=== PATIENT | female | born 1990 | race Caucasian/White ===

== ENCOUNTER 2023-02-19 13:07 | Outpatient (CLI) | payer OTHER, SELFPAY ==
[2023-02-19 21:19] LABS: Chlamydia DNA Amplified* NOT DETECTED (No Detected); GC DNA Amplified* NOT DETECTED (No Detected)
== END 2023-02-19 13:08 | disposition home or self-care (01) ==
PROVIDERS: Visit Provider Advanced Practice Midwife
DX: Z34.91 Encounter for supervision of normal pregnancy, unspecified, first trimester (principal); Z3A.09 9 weeks gestation of pregnancy
CPT/HCPCS: 76801; 86592; 86703; 86762; 86787; 86803; 86850; 86900; 86901; 87086; 87340; 87491; 87591

== ENCOUNTER 2023-05-06 12:48 | Outpatient (CLI) | payer OTHER, SELFPAY ==
--- NOTE | 2023-05-06 13:00 | CRLHL7_ITS ---
For Patients: As a result of the Century Cures Act, medical imaging exams and procedure reports are released immediately into your electronic medical record. You may view this report before your referring provider. If you have questions, please contact your health care provider. INDICATION: Evaluate anatomy. COMPARISON: 02/19/2023 TECHNIQUE: Real time duran scale imaging of the fetus was performed as well as color Doppler analysis of the umbilical vessels. FINDINGS: Sonographic imaging demonstrates a single living intrauterine gestation. Fetus demonstrates a regular cardiac rate of 148 beats per minute. Fetus has a variable position. The placenta lies anteriorly without evidence of placenta previa. The edges of the placenta is located 2.7 cm from the internal cervical os. Amniotic fluid volume appears normal. Single deepest vertical pocket: 5.2 cm. The cervix is closed and measures 4.5 cm in length. The composite ultrasound gestational age is calculated at 20 weeks 6 days with an estimated sonographic due date of 09/17/2023. The estimated weight is 385 grams which lies at the 56th %. The following biometric measurements were obtained: Biparietal diameter: 4.9 cm/20 weeks 5 days 49th% Head circumference: 18.1 cm/20 weeks 3 days 31st% Abdominal circumference: 16.0 cm/21 weeks 0 days 56th% Femur length: 3.4 cm/20 weeks 6 days 45th% The HC/AC ratio measures: 1.13 range (1.06-1.25) On anatomic survey, there is a normal appearance of the cerebral ventricles, cavum septi pellucidi, cisterna magna and cerebellum. The nose, lips, and facial profile appear normal. The cervical, thoracic and lumbar spine are well visualized and appear normal. There is a normal four-chamber heart view and the left and right ventricular outflow tracts appear normal. The diaphragm and stomach appear normal. The kidneys and bladder also appear normal. There is a normal three-vessel cord and cord insertion site. The four extremities appear normal. IMPRESSION: Normal OB ultrasound exam with concordance of clinical and sonographic dating. No intrinsic abnormalities noted on anatomic survey. Dictated by Niko Tucker MD @ 05/06/2023 1:45:12 PM (Electronically Signed)
== END 2023-05-06 12:49 | disposition home or self-care (01) ==
LOC: US 12:48
PROVIDERS: Visit Provider Advanced Practice Midwife
DX: Z34.92 Encounter for supervision of normal pregnancy, unspecified, second trimester (principal); Z3A.20 20 weeks gestation of pregnancy
CPT/HCPCS: 76805

== ENCOUNTER 2023-07-02 14:16 | Outpatient (CLI) | payer OTHER, SELFPAY | END 2023-07-02 14:17 | disposition home or self-care (01) | PROVIDERS: Visit Provider Advanced Practice Midwife | DX: Z34.93 Encounter for supervision of normal pregnancy, unspecified, third trimester (principal); Z3A.28 28 weeks gestation of pregnancy | CPT/HCPCS: 86592 ==

== ENCOUNTER 2023-07-19 14:52 | Outpatient (CLI) | payer OTHER, SELFPAY | END 2023-07-19 14:53 | disposition home or self-care (01) | PROVIDERS: Visit Provider Advanced Practice Midwife | DX: Z34.93 Encounter for supervision of normal pregnancy, unspecified, third trimester (principal); Z3A.31 31 weeks gestation of pregnancy | CPT/HCPCS: 82565; 82570; 84156; 84450; 84460 ==

== ENCOUNTER 2023-07-22 04:30 | Outpatient (CLI) | payer OTHER, SELFPAY | END 2023-07-22 04:31 | disposition home or self-care (01) | LOC: NFLDREF 07-23 08:47 | PROVIDERS: Visit Provider Advanced Practice Midwife | DX: Z34.93 Encounter for supervision of normal pregnancy, unspecified, third trimester (principal); Z3A.31 31 weeks gestation of pregnancy | CPT/HCPCS: 82570; 84156 ==

== ENCOUNTER 2023-08-23 15:59 | Outpatient (CLI) | payer OTHER, SELFPAY ==
[2023-08-24 15:18] LABS: Strep B DNA Probe Negative (Negative)
[2023-08-24 15:23] LABS: Strep B Susceptibility Needed? No
== END 2023-08-23 16:00 | disposition home or self-care (01) ==
LOC: NFLDREF 15:59
PROVIDERS: Visit Provider Advanced Practice Midwife
DX: Z34.83 Encounter for supervision of other normal pregnancy, third trimester (principal)
CPT/HCPCS: 87081; 87653

== ENCOUNTER 2023-09-14 15:36 | Outpatient (CLI) | payer OTHER, SELFPAY | END 2023-09-14 15:37 | disposition home or self-care (01) | PROVIDERS: Visit Provider Advanced Practice Midwife | DX: Z34.83 Encounter for supervision of other normal pregnancy, third trimester (principal); Z3A.39 39 weeks gestation of pregnancy | CPT/HCPCS: 82565; 82570; 84156; 84450; 84460; 84520; 84550 ==

== ENCOUNTER 2023-09-20 01:17 | Inpatient (IN) | payer OTHER, SELFPAY ==
[2023-09-20] VITALS (25 sets, daily range): BP systolic 109–175; BP diastolic 56–95; PULSE 58–100; RESP 16–18; TEMP 36.5–37.2; O2SAT 99
--- NOTE | 2023-09-20 01:43 | P.LDBA_ITS ---
Subjective History of Present Illness Date Seen: 09/20/23 Narrative: Patient is being admitted to Labor and Delivery for SROM of clear fluid at 2230. She noted a small gush of fluid when going up the stairs this evening and then has continued to trickle fluid since. She is a 33 year old at 40.2weeks gestation. Her full history and physical was dictated by MODESTO Vila on 08/30/2023.. Please see this for details. On admission her BP was slightly elevated at 138/95 with repeat of 130/79. She reports minimal contractions but states with her last labor she did not feel painful until about one hour before delivery. Specific Issues/Plans Partner: Lucas Teacher H&P done by MODESTO Vila on 08/30/2023. 1. Hx of depression and anxiety, previously treated w/ Effexor -Stable at this time w/o medication -PHQ-9: 9 at 32 weeks, declines intervention or concerns. ? 2. Hx of MRSA, cleared previously 3. Measuring large for dates at 20 & 24 wks. -EFW at anatomy scan 56% -Consider follow up u/s at 28 weeks if continues. Measuring 31 at 28.6wks. 4. Baseline PreE labs on 09/14 increase in edema and one BP 130/80 with normal recheck all WNL urine ratio was 0.20 Pap due PP COVID: declines Flu: declines Tdap: 07/19/2023 32wk Mental Health: 07/19/2023 34wk Hgb: 08/23/2023 OB - Problem Based A/P Additional Plan (1) SROM (spontaneous rupture of membranes): Status: Acute (2) 40 weeks gestation of : Status: Acute Plan Assessment:?? at 40.2 weeks gestation?? GBS negative? Patient is coping well with challenges of labor.?? Labor type: Spontaneous, Early labor? Category 1 FHR pattern.? Elevated BP on admission with normal recheck. complicated by: Hx of depression and anxiety, previously treated w/ Effexor -Stable at this time w/o medication -PHQ-9: 9 at 32 weeks, declines intervention or concerns. ? Hx of MRSA, cleared previously Measuring large for dates at 20 & 24 wks. -EFW at anatomy scan 56% -Consider follow up u/s at 28 weeks if continues. Measuring 31 at 28.6wks. Baseline PreE labs on 09/14 increase in edema and one BP 130/80 with normal recheck all WNL urine ratio was 0.20 Labor complicated by: SROM with occasional contractions Plan:?? * ?Admit to L & D? * Monitor BP per policy, if additional elevated reading will draw PreE labs. * IV access: not needed at this time. * Monitoring per policy: intermittent? * Candidate for analgesia of choice.? Planning nothing for pain management * Desires waterbirth.? Consent signed and Hep C negative * Expectant management at this time * Anticipate progress to NVD * Patient encouraged to reposition and ambulate to promote physiologic labor and . * Anticipate ? Delivery/Labor/Induction Plan Plan: expectant management OB Exam Physical Exam Vital signs: Temp Pulse BP Pulse Ox 98.1 F 69 130/79 99 09/20/23 00:35 09/20/23 01:13 09/20/23 01:13 09/20/23 00:36 Narrative: Vitals Reviewed Constitutional:? Alert and oriented x3 HEENT:? Normocephalic, atraumatic Neck:? Supple Lungs:? Clear to auscultation bilaterally Heart:? Regular rate and rhythm, faint murmur, no rub or gallop Abdomen:? Soft, nontender, and gravid. Vertex by Michel's, confirmed with cervical exam per RN. Extremities:? No edema or erythema Cervix: 3.5 cm/50%/-2 station/vertex per RN NST: 135 bpm/moderate variability/+accelerations/-decelerations/Q2 minutes contractions, not felt by pt Detailed Labor and Delivery Exam Patient Gravid: Yes Dilation (cm): 3 Effacement (%): 50 Fetus (Single) Amniotic Membrane Status: SROM Amniotic Membrane Fluid Description: Clear
--- NOTE | 2023-09-20 06:19 | PM.OBPNL ---
Subjective Date Seen: 09/20/23 Narrative: ?Kristi is not complaining of frequent labor pain/contractions, she last reports a contraction which woke her from sleep around 0515. ?Lucas is with her for support. ?She was able to sleep from about 0200 to 0400, is now up and sitting on the birthing ball. She would like to continue with repositioning for comfort and pain management.? Objective Exam: VSS, afebrile General Appearance:? Calm, cooperative. ?No acute distress. ? Psychiatric Exam: Alert and oriented, appropriate affect Abdomen: Gravid Ctx: ?rare FHTs: ?Baseline:130's intermittently monitored . ? ? SVE: deferred at this time Membranes: ?SROM ?AROM X 8 hours Vital Signs: Last Vital Signs Temp 97.9 F 09/20/23 05:59 Pulse 62 09/20/23 05:59 BP 137/83 09/20/23 05:59 Pulse Ox 99 09/20/23 00:36 Plan Plan: Assessment:?? at 40.2 gestation?? GBS negative Patient is coping well with challenges of labor.?? Labor type: Spontaneous, Early labor? complicated by: Hx of depression and anxiety, previously treated w/ Effexor -Stable at this time w/o medication -PHQ-9: 9 at 32 weeks, declines intervention or concerns. ? Hx of MRSA, cleared previously Measuring large for dates at 20 & 24 wks. -EFW at anatomy scan 56% -Consider follow up u/s at 28 weeks if continues. Measuring 31 at 28.6wks. Baseline PreE labs on 09/14 increase in edema and one BP 130/80 with normal recheck all WNL urine ratio was 0.20 Labor complicated by: SROM for 8 hours without onset of labor Plan:?? Continue with routine intrapartum cares as ordered.?? Patient encouraged to move and change positions to promote physiologic labor and .?? Nonpharmacologic comfort measures per patient preference. Candidate for analgesia of choice if desired. Patient planning waterbirth Anticipate progress to NVD. ?
[2023-09-20 08:12] LABS: Hematocrit 35.2 % (33.0-51.0); Hemoglobin* 11.7 gm/dL (12.0-16.0); Mean Corpuscular HGB Conc 33 gm/dL (32-36); Mean Corpuscular Hemoglobin 30 pg (26-34); Mean Corpuscular Volume 89 fL (80-100); Platelet Count* 192 K/uL (140-440); Red Blood Count 3.95 m/uL (4.00-5.20); White Blood Count* 11.99 K/uL (4.50-11.00)
[2023-09-20 08:17] LABS: Slide Review Reflex No
[2023-09-20 08:19] LABS: Alanine Aminotransferase* 16 U/L (4-35); Aspartate Amino Transferase* 24 U/L (12-35); Blood Urea Nitrogen* 7 mg/dL (5-24); Creatinine* 0.6 mg/dL (0.5-1.5); Estimated Glomerular Filt Rate 121 ml/min
--- NOTE | 2023-09-20 11:30 | P.OBPN_ITS ---
Subjective Date Seen: 09/20/23 Narrative: Kristi continues to leak clear fluid. She is having contractions but not feeling them any more than cramping or tightening. She has bee moving and doing the labor warm up circuit this morning. This am she had a blood pressure of 142/86. She previously had a blood pressure of 138/95 over night. Based on these two blood pressure she was diagnosed with gestational hypertension and PreE labs were collected. She denies s/sx of PreE and her labs were normal. She was educ ated on the changes in her labor plan including continuous monitoring and risking out of water . She is agreeable to these adjustments. She was a agreeable to a SVE this afternoon. She was found to be unchanged but her cervix is very anterior at this time. We discussed expectant management, Cytotec PO or Pitocin and the risks/benefits of each. She would like to proceed with Pitocin and state that she had Pitocin after SROM with her previous labors. All questions answered. 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
[2023-09-20] MEDS: LACTATED RINGERS 1000 ML 1,000 ML 125 ML IV ×2 (12:47→20:52)
[2023-09-20] MEDS: OXYTOCIN 30 unit/500 ML in NS 30 UNIT/500 ML BAG IVPB (12:50)
[2023-09-21] VITALS (20 sets, daily range): BP systolic 108–155; BP diastolic 52–83; PULSE 57–79; RESP 16–18; TEMP 36.5–37.2; O2SAT 97–100
[2023-09-21] MEDS: LACTATED RINGERS 1000 ML 1,000 ML 110 ML IV (04:42)
--- NOTE | 2023-09-21 05:19 | PM.OBPNL ---
Subjective Date Seen: 09/21/23 Narrative: Kristi has continue with Pitocin titration. It had got up to 17u/hr. She was feeling regular contractions for the last 1-2 hours but they are very tolerable and feel mostly like low abdominal cramping. She continues to leak a small amount of clear fluid. She has been alternating between resting and up moving with labor warmup position changes. She was agreeable to a cervical exam. She is unchanged from her previous exam. We discussed options going forward including expectant management. continuing with Pitocin titration, or changing to Cytotec. She was tearful with this discussion feeling frustrated that her body isn't going into labor and feeling exhausted. She would like to switch to Cytotec and is considering morphine Vistaril for sleep. The Pitocin was turned off. She is afebrile and BP's have been WNL. 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 Continuous monitoring. Morphine Vistaril for therapeutic sleep.
[2023-09-21] MEDS: hydrOXYzine pamoate 25 MG CAPSULE 100 MG PO (05:22)
[2023-09-21] MEDS: miSOPROStoL 25 MCG/0.25 TABLET PO ×3 (06:00→09:59)
[2023-09-21 12:27] LABS: Amnisure Rom* Negative
[2023-09-21] MEDS: miSOPROStoL 25 MCG/0.25 TABLET VAGINAL ×2 (13:20→16:46)
--- NOTE | 2023-09-21 13:42 | PM.OBPNL ---
Subjective Time Seen by Provider: 12:45 Date Seen: 09/21/23 Narrative: Kristi was able to get some rest this am after some Vistaril. She was started on cytotec and had received 3 oral doses. CNM at bedside to talk to her and review SROM information. Per Kristi, the initial gush she felt never leaked through her underwear or clothes. Other gushes also did not saturate pad. Not grossly ruptured per this information. Decision made to proceed with an amnisure to confirm rupture. Per RN, not done on admit. This returned negative. SVE done, /Ballotable. Not likely ruptured based on this information. Decision made to switch to vaginal cytotec dose. Reviewed that she is also eligible for a water as long as her blood pressures do not become severely elevated. She is tired but coping well at this time. Her partner is with her for support. She is planning an unmedicated water . Objective Exam: VSS, afebrile General Appearance:? Calm, cooperative. No acute distress. ? Psychiatric Exam: Alert and oriented, appropriate affect Abdomen: Gravid Ctx: ?Q 2-4 min apart. ?Mild FHTs: Baseline: 145. Variability: moderate. Accels: present. Decels: none. SVE: /Ballotable. Membranes: Intact ? Vital Signs: Last Vital Signs Temp 98.9 F 09/21/23 08:31 Pulse 74 09/21/23 12:56 Resp 16 09/21/23 06:02 BP 129/83 09/21/23 12:56 Pulse Ox 98 09/21/23 12:56 Contractions Pitocin Rate (mU/min): 17 (turned off) Plan Plan: Assessment:?? at 40.3 weeks gestation?? GBS negative Patient is coping well with challenges of labor.?? Labor type: Induced, not in labor complicated by: -Depression & anxiety, stable at this time w/o medication Labor complicated by: -Gestational hypertension. BPs stable at this time. Labs WNL yesterday. ? Plan:?? Reviewed w/ pt she is likely not ruptured. Options reviewed, and decision made to switch to vaginal cytotec. Discussed increasing to 50 mcg, but shortly after that ctx noted to be increasing in frequency. Decision made to proceed with 25 mcg vaginally instead. Unable to AROM at this time r/t ballotable fetus. Will continue to monitor blood pressures. WNL at this time. Consider labs if they become elevated again. Continue with routine intrapartum cares as ordered.?? Patient encouraged to move and change positions to promote physiologic labor and .?? Nonpharmacologic comfort measures per patient preference. Candidate for analgesia of choice if desired. Patient planning waterbirth. Reviewed remains a candidate as long as her blood pressures are not severe. Anticipate progress to NVD.
--- NOTE | 2023-09-21 20:21 | PM.OBPNL ---
Subjective Time Seen by Provider: 20:00 Date Seen: 09/21/23 Narrative: Kristi continues to have frequent contractions, however they are not strong at this time. She was able to nap again this afternoon for a little bit. Her partner remains at her bedside for support. Objective Exam: VSS, afebrile General Appearance:? Calm, cooperative. No acute distress. ? Psychiatric Exam: Alert and oriented, appropriate affect Abdomen: Gravid Ctx: ?Q 1-3 min apart. ?Mild FHTs: Baseline: 145. Variability: moderate. Accels: present. Decels: non. SVE: 4-5/70/-2/slightly ballotable with pressure Membranes: Intact ? Vital Signs: Last Vital Signs Temp 98.1 F 09/21/23 14:54 Pulse 57 L 09/21/23 17:18 Resp 16 09/21/23 14:54 BP 124/65 09/21/23 17:18 Pulse Ox 98 09/21/23 16:50 Plan Plan: Assessment:?? at 40.3 gestation?? GBS neg Patient is coping well with challenges of labor.?? Labor type: Induced, Early labor? complicated by: -Depression & anxiety, stable at this time w/o medication Labor complicated by: -Gestational hypertension. BPs stable at this time. Labs WNL yesterday. ? Plan:?? Reviewed options of one last dose of cytotec, AROM, or pitocin, including risks and benefits of these. Decision made to proceed with pitocin at this time. Consider AROM if progress does not continue. Continue to monitor blood pressures. Can repeat labs if they become elevated again. Continue with routine intrapartum cares as ordered.?? Patient encouraged to move and change positions to promote physiologic labor and .??Baby likely not in a great position - by SVE is sitting on the pubic bone. Encouraged to try an inversion, hands and knees and then lift n tucks to encourage baby into a better position and into the pelvis. Nonpharmacologic comfort measures per patient preference. Candidate for analgesia of choice if desired. Patient planning waterbirth Anticipate progress to NVD.
[2023-09-21] MEDS: LACTATED RINGERS 1000 ML 1,000 ML 125 ML IV (23:16)
[2023-09-21] MEDS: OXYTOCIN 30 unit/500 ML in NS 30 UNIT/500 ML BAG 301 UNIT IVPB (23:18)
[2023-09-21] MEDS: IBUPROFEN 600 MG TABLET PO (23:27)
--- NOTE | 2023-09-21 23:34 | W.PM.OBVAGDE ---
OB Procedure Vag Delivery Mother Details Mother Details: The patient is a 33 year-old, 3, now Para 3, admitted on 09/20/23 at 40.2 Days gestation. Delivery occurred 09/21/23 at 40.3 weeks : 3 Para: 3 Additional Details Amniotic Membrane Status: SROM Amniotic Membrane Rupture Date: 09/21/23 Amniotic Membrane Rupture Time: 23:04 Amniotic Membrane Fluid Description: Clear Analgesia/Anesthesia Type: None Waterbirth: Yes Pitcoin: No (PP only for AMTSL) Intrapartal Events: Labor Induction Labor Onset: 22:00 Complete: 23:00 (assumed with pushing) Pushin:00 Heart: heart tones during second stage were 120s. Difficult to trace w/ . Delivery Details Delivery Date: 09/21/23 Delivery Time: 23:14 Route of delivery: Gender: Female Infant Viability: Alive; Heart Rate Present Position at Delivery: OA Delivery Details: 4 hours after last dose of cytotec decision made to start pitocin. SVE indicated some change, but pt not feeing ctx. Decision made to start pitocin. Started at 2 mu, but ctx noted to be close together. Decreased to 1 mu. Called to room as she was feeling light headed. BP and pulse ox WNL. Fluid bolus started. Assisted from hands and knees to side lying. Helped slow her breathing down and instructed to try to relax as best as she could into the contraction. Lightheaded resolved. Breathing through ctx and c/o increasing pressure. SVE remained 6. Assisted to tub for pain relief and waterbirth per her preference. She was assumed to be complete with pushing. She pushed in a sitting position in the tub. ? Spontaneous vaginal delivery at 2314 of?a viable female .??Delivered in vertex OA position.??Shoulders delivered easily.? Spontaneous cry noted.?? placed on maternal abdomen.??Cord?was clamped and cut after a few minute delay. Increased bleeding noted in the tub, and decision made to clamp and cut and further evaluate. Pitocin started for AMTSL.? Shoulder dystocia: no? Nuchal cord: Yes, tight X 1, unable to reduce. somersaulted out and cord reduced as infant was brought up out of the tub. ? Meconium stained?fluid: no? Water : yes? ? ? 8 at 1 minute and 9 at 5 minutes.? ? Placenta delivered spontaneously and?complete?at 2323 with a?3 vessel?cord.?? Bleeding controlled with fundal massage and?pitocin?for AMTSL.? ? Mother and infant were stable after delivery.? ? Lacerations:? 1st degree laceration, not bleeding, not repaired. Reviewed option of repair, pt declined. ? Bleeding?post delivery?was: minimal . ?The fundas was firm to palpation.? Blood loss: 350?mL.? Blood loss measurement type: ? EBL? ? Sponge,?lap?and needles counts are correct.? Mother and were stable after delivery.? 1 Minute Interval Total Score: 8 5 Minute Interval Total Score: 9 Additional Details Shoulder Dystocia: No Placenta Delivery Time: 23:23 Placental Delivery Description: Spontaneous Procedure Done: Global Laceration: Perineal - 1st Degree Blood Loss Measurement Type: EBL Bakri Used: No Sponge/Need Count Correct: Yes Cord Vessel Description: 3 Vessels, Nuchal Cord and Tight Event Summary Status: Mother and infant were stable after delivery.
[2023-09-22] VITALS (14 sets, daily range): BP systolic 104–132; BP diastolic 56–85; PULSE 59–76; RESP 16; TEMP 36.4–37.1; O2SAT 96–98
[2023-09-22] MEDS: ACETAMINOPHEN 500 MG TABLET 1000 MG PO ×4 (04:19→22:04)
[2023-09-22] MEDS: IBUPROFEN 600 MG TABLET PO ×3 (08:15→20:06)
--- NOTE | 2023-09-22 11:37 | P.OBPN_ITS ---
OB - PN:Subj Subjective Date Seen: 09/22/23 Patient comments OB post-: no complaints and pain well controlled [place] infant status: and doing well [place] feeding status: exclusively Narrative: Kristi is a 33 y.o. who was admitted to L & D for SROM without onset of labor.? She had an uncomplicated NVD.? ?? The patient feels well.? The pain is well controlled with current medications.? She has no new complaints.? She is breast feeding and reports things are going well.? the patient has done well.? Vitals have been stable.? She has remained afebrile.? Has a good appetite, is tolerating a general diet.? She is voiding without difficulty.? She is passing gas and has not had a bowel movement.? She is ambulating and denies any dizziness.? Has Small amount of rub ra lochia.? OB - PN: Obj Exam Physical Exam: Vital signs: Temp Pulse Resp BP Pulse Ox O2 Del Method 97.5 F L 76 16 104/71 96 Room Air 09/22/23 11:35 09/22/23 11:35 09/22/23 11:35 09/22/23 11:35 09/22/23 11:35 09/22/23 11:35 Narrative: GENERAL APPEARANCE:? normal affect, alert, no distress? MOOD:? appropriate? HEENT: normocephalic, neck supple, full ROM? CHEST:? Symmetrical chest wall movement.? Normal respiratory effort.? Clear to auscultation ? HEART:? regular rate and rhythm? ABDOMEN:? soft, non-tender. Uterine fundus is firm, at Umbilicus, Midline and is appropriate for the stage of recovery.? Bowel sounds present.? PERINEUM:? mild edema of the perineum, there is a 1st degree laceration that is healing well.? EXTREMITIES:? normal and no edema? OB - PN: Obj Data Labs Labs: Laboratory Results - last 24 hr 09/21/23 11:52 Membrane Rupture Negative OB - PN: A/P Delivery Assessment and Plan (1) care and examination immediately after delivery: Status: Acute (2) Lactating mother: Status: Acute Plan day: 1 Plan: routine care Comments: G 3 P 3 status post uncomplicated NVD??? 1.? Continue route PP cares? 2.? .? May see if desired? 3.? Anticipate discharge home tomorrow?
[2023-09-23 00:45] VITALS: BP 108/72; PULSE 66; RESP 16; TEMP 36.6; O2SAT 96
[2023-09-23 07:50] VITALS: BP 126/78; PULSE 62; RESP 16; TEMP 36.7; O2SAT 95
[2023-09-23] MEDS: IBUPROFEN 600 MG TABLET PO (08:04)
[2023-09-23] MEDS: DOCUSATE SODIUM 100 MG CAPSULE PO (08:04)
--- NOTE | 2023-09-23 08:35 | PM.OBDSVD1 ---
DS: Providers Provider Date Seen: 09/23/23 Date of admission: 09/20/23 01:17 Primary care physician: Not a Local Provider Admitting Clinician: Emely Danielle CNM Attending Physician on discharge: Chiara Ramirez CNM DS: Diagnosis Discharge Diagnosis (1) care and examination immediately after delivery: Status: Acute (2) Lactating mother: Status: Acute (3) Gestational hypertension affecting third : Status: Acute Exam Narrative: Exam Narrative: GENERAL APPEARANCE:? normal affect, alert, no distress MOOD:? appropriate CHEST:? clear to auscultation HEART:? regular rate and rhythm ABDOMEN:? soft, non-tender the uterine fundus is 1 below Umbilicus, Midline and is appropriate for the stage of recovery. PERINEUM:? mild edema of the perineum, there is a Perineal Laceration,?1st degree, that is healing well. EXTREMITIES:? normal and trace edema Const: Vital Signs, click to edit/add: Vital Signs - 24 hr 09/22/23 11:35 09/22/23 15:46 09/22/23 20:09 Temperature 97.5 F L 98.1 F 98.7 F Pulse Rate [Pulse Oximeter] 76 69 74 Respiratory Rate 16 16 16 Blood Pressure [Le ft Arm] 104/71 129/79 127/85 Pulse Oximetry 96 98 97 Oxygen Delivery Me thod Room Air Room Air 09/23/23 00:45 09/23/23 07:50 Temperature 97.8 F 98.1 F Pulse Rate [Pulse Oximeter] 66 62 Respiratory Rate 16 16 Blood Pressure [Le ft Arm] 108/72 126/78 Pulse Oximetry 96 95 Oxygen Delivery Me thod Room Air Room Air Documenting provider has reviewed patient's vital signs: yes OB - DS: Summary Hospital Course Hospital Course: Kristi is a 33 y.o. G 3 P 3 who was admitted to [facility] for PROM. ?She had a NVD that was uncomplicated. The patient feels well. ?The pain is well controlled with current medications. ?She has no new complaints. ?She is breast feeding and reports things are going well. the patient has done well.?She had gestational hypertension diagnosed during labor. Vitals have been stable since delivery.? She has remained afebrile.? Has a good appetite, is tolerating a general diet. ?She is voiding without difficulty.? She is passing gas and has [not] had a bowel movement.? She is ambulating and denies any dizziness.? Has small amount of rubra lochia. plan: Discharge home with baby. Follow up in 2 weeks and 6 weeks. , may see if needed GHTN diagnosed by elevated BP greater than 4 hours apart Labs WNL Discharge home with BP cuff if does not already have one Follow up in 3-5 days for BP check Call for signs/symptoms of preeclampsia Peripartum Data delivery method: Vaginal Laceration description: Perineal - 1st Degree [place] Gender: Female Discharge Plan: Home Status at Discharge Functional status at discharge: independent ambulation Overall status at discharge: patient is progressing back to baseline Time Spent with Patient Time attestation: Total time spent providing and/or coordinating discharge services: Discharge Plan Discharge Disposition: Home, Self-Care Date of Admission: 09/20/23 01:17 Attending Provider on Discharge: Chiara Ramirez Primary Care Provider: Provider,Not a Local Condition: Stable Anticipated Discharge Date/Time: 09/23/23 12:00 Discharge Medications: New acetaminophen 500 mg Tablet 1,000 mg PO Q6H PRNQty: 0 0RF docusate sodium 100 mg Capsule 100 mg PO DAILY Qty: 90 0RF ibuprofen 600 mg Tablet 600 mg PO Q6H PRNQty: 60 0RF Continued prenat.vits,santiago,[id number] Tablet 1 tab PO QDAY Discontinued ondansetron HCl 4 mg tablet 4 mg PO TID PRN (Reason: nausea and vomiting) Qty: 30 3RF Discharge Orders: Discharge Order (Routine); Ordered 09/23/23 Ordered By: Chiara Ramirez Patient Education: OB Over the Counter Medication Information, OB Vaginal/Breast Feeding Additional Instructions: Discharge instructions were reviewed with the patient including signs and symptoms of infection and home going medications Nothing vaginally for 6 weeks: no tampons or intercourse Off Work or School for 6 weeks Follow [facility] for a BP check?in 3-5 days Call with BP greater than or equal to 160/110 2-week visit: discuss infant feeding concerns, review control options and screen for anxiety/depression. 6-week visit for an annual exam. consultation services are available to all mothers and babies for the first year after delivery.? To make an appointment, please call [phone]. Activity Level: Activity as Tolerated Discharge Diet: Regular Follow Up Appointments: [facility] [Provider Group] Forms: [email or web address] Info Instructions
== END 2023-09-23 10:50 | disposition home or self-care (01) | DRG 807 ==
LOC: OB OUT 01:18 → OB 01:18
PROVIDERS: Advanced Practice Midwife; Admitting Provider Advanced Practice Midwife; Visit Provider Advanced Practice Midwife
DX: O13.4 Gestational [pregnancy-induced] hypertension without significant proteinuria, complicating childbirth (principal); Z37.0 Single live birth; Z3A.40 40 weeks gestation of pregnancy; O99.344 Other mental disorders complicating childbirth; F41.9 Anxiety disorder, unspecified; F32.A Depression, unspecified; O70.0 First degree perineal laceration during delivery
CPT/HCPCS: 36415; 59200; 76815; 82565; 84112; 84450; 84460; 84520; 85027; 86850; 86900; 86901; A9270; J2371; J7120

== ENCOUNTER 2023-09-28 14:47 | Inpatient (IN) | payer OTHER, SELFPAY ==
[2023-09-28] VITALS (20 sets, daily range): BP systolic 112–221; BP diastolic 69–95; PULSE 64–142; RESP 16–18; TEMP 36.6; O2SAT 96–98; BMI 33.7
[2023-09-28 12:16] LABS: Hematocrit 42.1 % (33.0-51.0); Mean Corpuscular HGB Conc 33 gm/dL (32-36); Mean Corpuscular Hemoglobin 30 pg (26-34); Mean Corpuscular Volume 89 fL (80-100); Platelet Count* 291 K/uL (140-440); Red Blood Count 4.75 m/uL (4.00-5.20)
[2023-09-28 12:23] LABS: Slide Review Reflex No
[2023-09-28 12:35] LABS: Alanine Aminotransferase* 28 U/L (4-35); Aspartate Amino Transferase* 28 U/L (12-35); Blood Urea Nitrogen* 15 mg/dL (5-24); Creatinine* 0.7 mg/dL (0.5-1.5); Estimated Glomerular Filt Rate 117 ml/min; Uric Acid* 7.9 mg/dL (2.2-8.4)
[2023-09-28] MEDS: NIFEdipine 10 MG CAPSULE PO ×2 (12:56→13:17)
--- NOTE | 2023-09-28 12:58 | W.PM.LDBA ---
Subjective History of Present Illness Narrative: Patient is being admitted to Labor and Delivery for preeclampsia with severe features. She is a 33 year old who is day 7 s/p at term. She had some elevated BPs during her hospital course, and home BPs monitoring was thus recommended. She presented for RN visit today in clinic with log showing multiple BP elevations in severe range. She has intermittently had an headache as well. When sent to the Center, she again had severe elevations of BP. Specific Issues/Plans Partner: Lucas Teacher H&P done by [facility] on 08/30/2023. 1. Hx of depression and anxiety, previously treated w/ Effexor -Stable at this time w/o medication -PHQ-9: 9 at 32 weeks, declines intervention or concerns. ? 2. Hx of MRSA, cleared previously 3. Measuring large for dates at 20 & 24 wks. -EFW at anatomy scan 56% -Consider follow up u/s at 28 weeks if continues. Measuring 31 at 28.6wks. 4. Baseline PreE labs on 09/14 increase in edema and one BP 130/80 with normal recheck all WNL urine ratio was 0.20 Pap due PP COVID: declines Flu: declines Tdap: 07/19/2023 32wk Mental Health: 07/19/2023 34wk Hgb: 08/23/2023 Comments: She is . She has no heavy bleeding. She has intermittent SHARMA OB - Problem Based A/P Additional Plan (1) Pre-eclampsia affecting puerperium: Problem details: with severe features based on severely elevated BP Status: Acute Plan: Admit for magnesium sulfate infusion for prophylaxis of seizures. She received 1 dose of note oral nifedipine while IV was being placed. Moving forward, we will use labetalol IV for management severely elevated blood pressure. Limit oral intake to 2 L a day. Strict ins and outs. Preeclampsia labs every 6 hours. Plan I anticipate discharge on 09/30/2023 once she is off magnesium and blood pressures are adequately controlled. OB Result Labs Labs: Labs at noon: Hemoglobin 14.0, hematocrit 42.1, platelets 291 BUN 15, creatinine 0.7 AST 28, ALT 28 OB Exam Physical Exam Vital signs: Pulse BP 75 221/94 H 09/28/23 12:54 09/28/23 12:54 Narrative: Physical exam: General: No acute distress Psych: Alert and oriented x3, full affect HEENT: Normocephalic, atraumatic Neck: No cervical adenopathy, no thyromegaly Heart: Regular rate and rhythm, no murmur rub or gallop Lungs: Clear to auscultation bilaterally Abdomen: Soft, no tenderness, rebound, or guarding, no masses, no hepatosplenomegaly, no hernias Lower extremities: No edema or erythema
[2023-09-28] MEDS: MAGNESIUM IV 4 GM/100 ML PIGGYBACK IVPB (13:44)
[2023-09-28 18:14] LABS: Hematocrit 46.6 % (33.0-51.0); Hemoglobin* 15.4 gm/dL (12.0-16.0); Mean Corpuscular HGB Conc 33 gm/dL (32-36); Mean Corpuscular Hemoglobin 29 pg (26-34); Mean Corpuscular Volume 88 fL (80-100); Platelet Count* 343 K/uL (140-440); White Blood Count* 12.79 K/uL (4.50-11.00)
[2023-09-28] MEDS: ACETAMINOPHEN 500 MG TABLET 1000 MG PO (18:16)
[2023-09-28 18:23] LABS: Slide Review Reflex No
[2023-09-28 18:29] LABS: Alanine Aminotransferase* 30 U/L (4-35); Aspartate Amino Transferase* 29 U/L (12-35); Blood Urea Nitrogen* 13 mg/dL (5-24); Creatinine* 0.7 mg/dL (0.5-1.5); Est. Creatinine Clearance* 98.71; Estimated Glomerular Filt Rate 117 ml/min
[2023-09-28] MEDS: IBUPROFEN 600 MG TABLET PO (21:19)
[2023-09-29] VITALS (10 sets, daily range): BP systolic 66–151; BP diastolic 36–93; PULSE 51–97; RESP 10–16; TEMP 36.4–36.9; O2SAT 93–99
[2023-09-29 00:53] LABS: Hematocrit 43.7 % (33.0-51.0); Hemoglobin* 14.8 gm/dL (12.0-16.0); Mean Corpuscular HGB Conc 34 gm/dL (32-36); Mean Corpuscular Hemoglobin 30 pg (26-34); Mean Corpuscular Volume 87 fL (80-100); Platelet Count* 328 K/uL (140-440); White Blood Count* 12.15 K/uL (4.50-11.00)
[2023-09-29 00:54] LABS: Slide Review Reflex No
[2023-09-29 01:12] LABS: Alanine Aminotransferase* 27 U/L (4-35); Aspartate Amino Transferase* 28 U/L (12-35); Creatinine* 0.7 mg/dL (0.5-1.5); Est. Creatinine Clearance* 98.71; Estimated Glomerular Filt Rate 117 ml/min
[2023-09-29 01:13] LABS: Blood Urea Nitrogen* 13 mg/dL (5-24)
[2023-09-29] MEDS: OXYCODONE 5 MG TABLET PO (01:26)
[2023-09-29 01:57] LABS: Magnesium* 7.1 mg/dL (1.5-2.6)
[2023-09-29] MEDS: METOCLOPRAMIDE HCL 5 MG/ML INJ 10 MG IVP (04:40)
[2023-09-29] MEDS: LACTATED RINGERS 500 ML 500 ML IV (05:02)
[2023-09-29] MEDS: LACTATED RINGERS 1000 ML 1,000 ML 125 ML IV ×2 (05:30→07:55)
[2023-09-29 05:56] LABS: Hematocrit 45.3 % (33.0-51.0); Hemoglobin* 15.3 gm/dL (12.0-16.0); Mean Corpuscular HGB Conc 34 gm/dL (32-36); Mean Corpuscular Hemoglobin 30 pg (26-34); Mean Corpuscular Volume 88 fL (80-100); Platelet Count* 308 K/uL (140-440); Red Blood Count 5.13 m/uL (4.00-5.20); White Blood Count* 10.86 K/uL (4.50-11.00)
[2023-09-29 06:02] LABS: Slide Review Reflex No
[2023-09-29 06:13] LABS: Chloride* 100 mmol/L (96-114); Sodium* 135 mmol/L (135-149)
[2023-09-29 06:16] LABS: Anion Gap 11 mEq/L (7-15); Blood Urea Nitrogen* 15 mg/dL (5-24); Carbon Dioxide* 24 mmol/L (20-32); Creatinine* 0.7 mg/dL (0.5-1.5); Est. Creatinine Clearance* 98.71; Estimated Glomerular Filt Rate 117 ml/min; Glucose* 117 mg/dL (60-115)
[2023-09-29 06:17] LABS: Alanine Aminotransferase* 27 U/L (4-35); Aspartate Amino Transferase* 27 U/L (12-35); Blood Urea Nitrogen* 15 mg/dL (5-24); Calcium* 7.2 mg/dL (8.4-10.6)
--- NOTE | 2023-09-29 06:18 | PM.OBPNVD1 ---
OB - PN:Subj Subjective Time Seen by Provider: 05:15 Date Seen: 09/29/23 Interval history: Kristi is a 33 yo woman on day #8 s/p at term, and hospital day #2 after readmission for preeclampsia with severe features. Diagnosis was based on severe elevation of BPs without other lab abnormalities. She has been on magnesium sulfate for seizure prophylaxis since 1344 on 09/28. Narrative: I was called to assess Kristi shortly after 5 AM for low BP. She tried to get up to bathroom but felt too dizzy. Her BP at that time was recorded as 66/36. She was given a bolus of 500 cc of LR, and BP has improved to 114/76. She has been complaining of headache for much of the night. She has been treated with ibuprofen, Tylenol, then oxycodone and IV Reglan. At the time of my visit, she reports that SHARMA has decreased in intensity from a 6 to a 2 on pain scale. Nurses have noted intermittently decreased respiratory rate, low of 10. She is not hypoxic, but most recent saturation was 93% on room air. She doesn't feel short of breath, but is breathing at an erratic pace. She recently had an episode of RUQ pain with standing, but it was positional and has improved substantially. OB - PN: Obj Exam Physical Exam: Vital signs: Temp Pulse Resp BP Pulse Ox O2 Del Method 97.6 F 53 L 12 114/76 93 Room Air 09/29/23 04:35 09/29/23 05:00 09/29/23 05:00 09/29/23 05:00 09/29/23 05:00 09/29/23 05:00 Narrative: She has not had severely elevated BPs since admission. She had two doses of oral nifedipine around that time, and no antihypertensives since. She has been primarily normotensive since start of magnesium, with only recent hypotension. HR has only recently been low in the 50s. General: Lying in bed, eyes closed, alert and able to respond, but appears sedated Heart: Regular rate and rhythm, no murmur or gallop Lungs: Clear to auscultation bilaterally Abdomen: Soft, nontender, normoactive bowel sounds in all 4 quadrants. There is no right upper quadrant pain elicited by palpation in this region. Lower extremities: No edema or erythema Neuro: patellar DTR 2+ OB - PN: Obj Data Labs Labs: Laboratory Results - last 24 hr 09/28/23 09/28/23 09/29/23 12:06 18:00 00:45 WBC 8.70 12.79 H 12.15 H RBC 4.75 5.30 H 5.00 Hgb 14.0 15.4 14.8 Hct 42.1 46.6 43.7 MCV 89 88 87 MCH 30 29 30 MCHC 33 33 34 Plt Count 291 343 328 BUN 15 13 13 Creatinine 0.7 0.7 0.7 Estimated Creat Clear 98.71 98.71 Estimated GFR 117 117 117 Uric Acid 7.9 Magnesium 7.1 H* AST 28 29 28 ALT 28 30 27 09/29/23 05:50 WBC 10.86 RBC 5.13 Hgb 15.3 Hct 45.3 MCV 88 MCH 30 MCHC 34 Plt Count 308 BUN Creatinine Estimated Creat Clear Estimated GFR Uric Acid Magnesium AST ALT Labs from 5:50 a.m.: CBC entirely normal, hemoglobin 15.3, platelets 308 Basic metabolic panel entirely normal, creatinine 0.7, glucose 117, calcium slightly low at 7.2 AST and ALT 27 Magnesium level 7.1 mg/dL at 12:45 a.m., repeat pending at this time OB - PN: A/P Delivery Assessment and Plan (1) Pre-eclampsia affecting puerperium: Problem details: with severe features based on severely elevated BP Status: Acute Assessment and Plan: All HELLP labs have been normal, and she has had abundant urine output since admission. Magnesium level at midnight was in therapeutic range. However, her bradypnea is concerning for magnesium toxicity. In addition, she was experiencing symptomatic hypotension. I will begin LR at 125 / hr. Repeat magnesium level is pending. I opted to stop magnesium at this time to follow vital signs. If respiratory rate improves, I favor restarting magnesium at a lower infusion rate. (2) Bradypnea: Status: Acute Assessment and Plan: as above. Normal O2 saturation. Maintain on puse ox. (3) Hypotension: Status: Acute Assessment and Plan: Resolved after 500 cc bolus, as above. Likely magnesium side effect.
[2023-09-29 06:40] LABS: Magnesium* 7.2 mg/dL (1.5-2.6)
--- NOTE | 2023-09-29 07:42 | P.OBPN_ITS ---
OB - PN:Subj Subjective Time Seen by Provider: 07:15 Date Seen: 09/29/23 Interval history: Kristi is a 33 yo woman on day #8 s/p at term, and hospital day #2 after readmission for preeclampsia with severe features. Diagnosis was based on severe elevation of BPs without other lab abnormalities. She has been on magnesium sulfate for seizure prophylaxis since 1344 on 09/28. This morning, she had an episode of dizziness after getting up to use the bathroom. RN noted pallor, where she helped patient back to bed. Vitals were obtained, revealing hypotension, bradycardia and reduced respiratory rate (10) but normal O2 sat. Magnesium was previously noted to be therapeutic at 7.1. Dr. Jj notified, where magnesium was held and repeat Mag level/BMP was obtained. Her BMP was within normal limits, mag level of 7.2. Patient noted subjective improvement in her symptoms. VS normalized. On my rounds, Ms. Taylor notes feeling much better. She denies any dizziness/lightheadedness, chest pain or dypsnea. She notes mild headache, no v ision changes or RUQ pain. No abdominal pain, extremity swelling/pain. Robust UOP overnight. No bowel or bladder concerns. OB - PN: Obj Exam Physical Exam: Vital signs: Temp Pulse Resp BP Pulse Ox O2 Del Method 97.6 F 59 L 12 122/81 99 Room Air 09/29/23 04:35 09/29/23 06:50 09/29/23 06:50 09/29/23 06:50 09/29/23 06:50 09/29/23 06:50 Narrative: Physical exam: General: No acute distress Psych: Alert and oriented x3, full affect Heart: Regular rate and rhythm, no murmur rub or gallop Lungs: Clear to auscultation bilaterally Abdomen: Soft, non-tender and non-distended. Lower extremities: No edema or erythema OB - PN: Obj Data Labs Labs: Laboratory Results - last 24 hr 09/28/23 09/28/23 09/29/23 12:06 18:00 00:45 WBC 8.70 12.79 H 12.15 H RBC 4.75 5.30 H 5.00 Hgb 14.0 15.4 14.8 Hct 42.1 46.6 43.7 MCV 89 88 87 MCH 30 29 30 MCHC 33 33 34 Plt Count 291 343 328 Sodium Potassium Chloride Carbon Dioxide Anion Gap BUN 15 13 13 Creatinine 0.7 0.7 0.7 Estimated Creat Clear 98.71 98.71 Estimated GFR 117 117 117 Glucose Uric Acid 7.9 Calcium Magnesium 7.1 H* AST 28 29 28 ALT 28 30 27 09/29/23 09/29/23 09/29/23 05:50 05:50 05:50 WBC 10.86 RBC 5.13 Hgb 15.3 Hct 45.3 MCV 88 MCH 30 MCHC 34 Plt Count 308 Sodium 135 Potassium 4.0 Chloride 100 Carbon Dioxide 24 Anion Gap 11 BUN 15 15 Creatinine 0.7 0.7 Estimated Creat Clear 98.71 Estimated GFR Glucose Uric Acid Calcium Magnesium AST ALT 09/29/23 09/29/23 05:50 05:50 WBC RBC Hgb Hct MCV MCH MCHC Plt Count Sodium Potassium Chloride Carbon Dioxide Anion Gap BUN Creatinine Estimated Creat Clear 98.71 Estimated GFR 117 117 Glucose 117 H Uric Acid Calcium 7.2 L Magnesium 7.2 H* AST 27 ALT 27 OB - PN: A/P Delivery Assessment and Plan (1) Pre-eclampsia affecting puerperium: Problem details: with severe features based on severely elevated BP Status: Acute (2) Bradypnea: Status: Acute (3) Hypotension: Status: Acute Plan Comments: Ms. Taylor is a 33yo s/p complicated by preeclampsia with severe features (blood pressures). She has ongoing blood pressure monitoring and magnesium sulfate for seizure prophylaxis. She had an episode near vasovagal syncope this morning, with associated bradypnea. Magnesium sulfate was held, repeat HELLP labs and Mag level were obtained and found to be within normal limits. Though her Mag level of 7.2 was within normal limits, decision was made to resume magnesium sulfate infusion at 1 gram/hour given symptoms. We reviewed that a 24 hour course of magnesium sulfate would be the goal, however we will re-evaluate if she were to have another vasovagal event and/or signs/symptoms of respiratory depression. Patient expressed understanding and is agreeable to plan. - Resume mag sulfate at 1g/hr - Repeat HELLP labs and Mag level at 1200 - Diligent BP monitoring, on no long acting anti-hypertensives at this time - Strict I/Os, robust UOP noted - Routine cares
[2023-09-29] MEDS: IBUPROFEN 600 MG TABLET PO ×2 (07:55→13:49)
[2023-09-29] MEDS: ACETAMINOPHEN 500 MG TABLET 1000 MG PO ×2 (09:48→16:45)
[2023-09-29] MEDS: ONDANSETRON 2 MG/ML inj 4 MG IVP (10:43)
[2023-09-29 11:13] LABS: Magnesium* 5.9 mg/dL (1.5-2.6)
[2023-09-29 12:00] LABS: Hematocrit 44.2 % (33.0-51.0); Hemoglobin* 14.5 gm/dL (12.0-16.0); Mean Corpuscular HGB Conc 33 gm/dL (32-36); Mean Corpuscular Hemoglobin 29 pg (26-34); Mean Corpuscular Volume 89 fL (80-100); Platelet Count* 310 K/uL (140-440); Red Blood Count 4.99 m/uL (4.00-5.20); White Blood Count* 10.17 K/uL (4.50-11.00)
[2023-09-29 12:10] LABS: Slide Review Reflex No
[2023-09-29 12:16] LABS: Alanine Aminotransferase* 36 U/L (4-35); Aspartate Amino Transferase* 56 U/L (12-35); Blood Urea Nitrogen* 15 mg/dL (5-24); Creatinine* 0.9 mg/dL (0.5-1.5); Est. Creatinine Clearance* 76.77; Estimated Glomerular Filt Rate 87 ml/min
[2023-09-29 18:35] LABS: Hematocrit 41.1 % (33.0-51.0); Hemoglobin* 13.6 gm/dL (12.0-16.0); Mean Corpuscular HGB Conc 33 gm/dL (32-36); Mean Corpuscular Hemoglobin 29 pg (26-34); Mean Corpuscular Volume 88 fL (80-100); Platelet Count* 294 K/uL (140-440); Red Blood Count 4.66 m/uL (4.00-5.20); White Blood Count* 9.29 K/uL (4.50-11.00)
[2023-09-29 18:41] LABS: Slide Review Reflex No
[2023-09-29 18:54] LABS: Alanine Aminotransferase* 31 U/L (4-35); Blood Urea Nitrogen* 16 mg/dL (5-24); Creatinine* 0.9 mg/dL (0.5-1.5); Est. Creatinine Clearance* 76.77; Estimated Glomerular Filt Rate 87 ml/min
[2023-09-29 20:24] LABS: Aspartate Amino Transferase* 35 U/L (12-35)
[2023-09-29] MEDS: NIFEdipine 30 MG TAB.ER.24 PO (20:29)
[2023-09-30] VITALS (11 sets, daily range): BP systolic 111–167; BP diastolic 73–89; PULSE 60–80; RESP 12–16; TEMP 36.8–37.1; O2SAT 97–98
[2023-09-30 01:58] LABS: Hematocrit 41.6 % (33.0-51.0); Hemoglobin* 13.8 gm/dL (12.0-16.0); Mean Corpuscular HGB Conc 33 gm/dL (32-36); Mean Corpuscular Hemoglobin 29 pg (26-34); Mean Corpuscular Volume 89 fL (80-100); Platelet Count* 289 K/uL (140-440); Red Blood Count 4.69 m/uL (4.00-5.20); White Blood Count* 7.97 K/uL (4.50-11.00)
[2023-09-30 01:59] LABS: Slide Review Reflex No
[2023-09-30 02:13] LABS: Alanine Aminotransferase* 29 U/L (4-35); Aspartate Amino Transferase* 40 U/L (12-35); Creatinine* 0.8 mg/dL (0.5-1.5); Est. Creatinine Clearance* 86.37; Estimated Glomerular Filt Rate 100 ml/min
[2023-09-30 02:14] LABS: Blood Urea Nitrogen* 16 mg/dL (5-24)
[2023-09-30] MEDS: NIFEdipine 30 MG TAB.ER.24 PO (06:26)
[2023-09-30] MEDS: IBUPROFEN 600 MG TABLET PO (08:02)
--- NOTE | 2023-09-30 08:32 | PM.OBPNVD1 ---
OB - PN:Subj Subjective Time Seen by Provider: 08:32 Date Seen: 09/30/23 Interval history: Kristi is a 33 yo woman on day #9 s/p at term, and hospital day #3 after readmission for preeclampsia with severe features. Diagnosis was based on severe elevation of BPs without other lab abnormalities. She has been on magnesium sulfate for seizure prophylaxis since 1344 on 09/28. This morning she has no concerns and feels well. The headache she had on admission has resolved. AST increased from 35 yesterday to 40 this morning. Another set of labs was ordered to be done at noon today. Her blood pressure was also elevated overnight from 140s-160/80s-90's. Nifedipine XL 30 mg b.i.d. has been initiated. If blood pressure remains 140/90s or higher I will add labetalol to her nifedipine. She would like to go home today and I warned her that she may have to stay 1 more night for blood pressure control. OB - PN: Obj Exam Physical Exam: Vital signs: Temp Pulse Resp BP Pulse Ox O2 Del Method 98.3 F 80 16 111/73 97 Room Air 09/30/23 07:53 09/30/23 07:53 09/30/23 07:53 09/30/23 07:53 09/30/23 07:53 09/30/23 07:53 Narrative: GENERAL APPEARANCE: Pleasant, , well-groomed woman in no acute distress. VITAL SIGNS: as noted in nursing notes HEAD: Normocephalic, atraumatic. THYROID: no masses, nodularity, tenderness or enlargement. LUNGS: Clear to auscultation bilaterally without wheezes, rales or rhonchi. HEART: Regular rate and rhythm with normal S1 and S2. No gallop, rub or murmur. ABDOMEN: Fundus firm and nontender 4 finger breaths below the umbilicus in the midline. EXTREMITIES: No cyanosis, clubbing, or edema. No varicosities. NEUROLOGIC: Normal gait and balance. Normal deep tendon reflexes at bilateral patella 2+/2, equal without clonus. PSYCHIATRIC: alert and oriented x3. Normal speech pattern, eye contact and affect. SKIN: Warm, dry, and well perfused. Good turgor. No lesions, nodules or rashes. OB - PN: Obj Data Labs Labs: Laboratory Results - last 24 hr 09/29/23 09/29/23 09/29/23 10:43 11:55 18:29 WBC 10.17 9.29 RBC 4.99 4.66 Hgb 14.5 13.6 Hct 44.2 41.1 MCV 89 88 MCH 29 29 MCHC 33 33 Plt Count 310 294 BUN 15 16 Creatinine 0.9 0.9 Estimated Creat Clear 76.77 76.77 Estimated GFR 87 87 Magnesium 5.9 H* AST 56 H 35 ALT 36 H 31 09/30/23 01:50 WBC 7.97 RBC 4.69 Hgb 13.8 Hct 41.6 MCV 89 MCH 29 MCHC 33 Plt Count 289 BUN 16 Creatinine 0.8 Estimated Creat Clear 86.37 Estimated GFR 100 Magnesium AST 40 H ALT 29 OB - PN: A/P Delivery Assessment and Plan (1) Pre-eclampsia affecting puerperium: Problem details: with severe features based on severely elevated BP Status: Acute (2) Bradypnea: Status: Acute (3) Hypotension: Status: Acute Plan 1. Continue nifedipine XL b.i.d. 2. Monitor blood pressure over the course of the day. 3. Possible discharge home later today if blood pressure remains under good control through the afternoon. 4. If systolic blood pressures greater than or equal to 140 or diastolic blood pressure greater than or equal to 90 will add labetalol to her nifedipine XL 30 b.i.d.
[2023-09-30 12:10] LABS: Hematocrit 44.8 % (33.0-51.0); Hemoglobin* 14.7 gm/dL (12.0-16.0); Mean Corpuscular HGB Conc 33 gm/dL (32-36); Mean Corpuscular Hemoglobin 29 pg (26-34); Mean Corpuscular Volume 89 fL (80-100); Platelet Count* 328 K/uL (140-440); Red Blood Count 5.05 m/uL (4.00-5.20); White Blood Count* 11.22 K/uL (4.50-11.00)
[2023-09-30 12:25] LABS: Alanine Aminotransferase* 29 U/L (4-35); Aspartate Amino Transferase* 29 U/L (12-35); Blood Urea Nitrogen* 17 mg/dL (5-24); Creatinine* 0.8 mg/dL (0.5-1.5); Est. Creatinine Clearance* 86.37; Estimated Glomerular Filt Rate 100 ml/min
[2023-09-30 12:31] LABS: Slide Review Reflex No
--- NOTE | 2023-09-30 16:06 | P.DS_ITS ---
DS: Providers Provider Time Seen by Provider: 16:06 Date Seen: 09/30/23 Date of admission: 09/28/23 14:47 Primary care physician: Not a Local Provider Admitting Clinician: Heide Jj MD Attending Physician on discharge: Kemi Segura MD Date of Discharge: 09/30/23 DS: Diagnosis Discharge Diagnosis (1) Pre-eclampsia affecting puerperium: Status: Acute Problem details: with severe features based on severely elevated BP Exam Narrative: Exam Narrative: GENERAL APPEARANCE: Pleasant, , well-groomed woman in no acute distress. VITAL SIGNS: as noted in nursing notes HEAD: Normocephalic, atraumatic. THYROID: no masses, nodularity, tenderness or enlargement. LUNGS: Clear to auscultation bilaterally without wheezes, rales or rhonchi. HEART: Regular rate and rhythm with normal S1 and S2. No gallop, rub or murmur. ABDOMEN: Fundus firm and nontender 4 finger breaths below the umbilicus in the midline. Soft, nontender, nondistended, with normal bowels sounds throughout. EXTREMITIES: No cyanosis, clubbing, or edema. No varicosities. NEUROLOGIC: Normal gait and balance. Normal deep tendon reflexes at bilateral patella 2+/2, equal without clonus. PSYCHIATRIC: alert and oriented x3. Normal speech pattern, eye contact and affect. SKIN: Warm, dry, and well perfused. Good turgor. No lesions, nodules or rashes. Const: Vital Signs, click to edit/add: Vital Signs - 24 hr 09/29/23 16:41 09/29/23 20:01 09/30/23 00:58 Temperature 98.5 F 97.9 F 98.2 F Pulse Rate [Blood Pressure Cuff] 63 63 60 Respiratory Rate 16 16 12 Blood Pressure [Ri ght Arm] 135/86 151/93 H 167/81 H Pulse Oximetry 97 94 97 Oxygen Delivery Me thod Room Air Room Air Room Air 09/30/23 01:08 09/30/23 01:20 09/30/23 01:50 Temperature Pulse Rate [Blood Pressure Cuff] Respiratory Rate Blood Pressure [Ri ght Arm] 145/83 H 144/88 H 134/89 Pulse Oximetry Oxygen Delivery Me thod 09/30/23 02:24 09/30/23 04:20 09/30/23 06:25 Temperature 98.5 F Pulse Rate [Blood Pressure Cuff] 75 Respiratory Rate 15 Blood Pressure [Ri ght Arm] 142/89 H 146/88 H 136/85 Pulse Oximetry 97 Oxygen Delivery Me thod 09/30/23 07:53 09/30/23 12:01 09/30/23 14:14 Temperature 98.3 F 98.4 F 98.2 F Pulse Rate [Blood Pressure Cuff] 80 80 73 Respiratory Rate 16 16 16 Blood Pressure [Ri ght Arm] 111/73 128/86 122/80 Pulse Oximetry 97 98 97 Oxygen Delivery Me thod Room Air Room Air Room Air 09/30/23 15:56 Temperature 98.8 F Pulse Rate [Blood Pressure Cuff] 64 Respiratory Rate 16 Blood Pressure [Ri ght Arm] 133/84 Pulse Oximetry 97 Oxygen Delivery Me thod Room Air OB - DS: Summary Hospital Course Hospital Course: Kristi is a 33 year old G 3 P 3 admitted to the Center on 09/28/2023, 7 days from a normal spontaneous vaginal delivery for severe range blood pressure with a diagnosis of preeclampsia. She received magnesium for seizure prophylaxis for greater than 24 hours. Magnesium was discontinued for a few hours on 09/28/2023 due to hypotension and dizziness with a magnesium level of 7.2. The magnesium was restarted and ran at 1 gram/hour until 1:45 p.m. on 09/29/2023. She was started on nifedipine XL 30 mg p.o. q.h.s. on the evening of 09/29/2023 and then a 2nd dose was added in the machine i trimmer of 09/30/2023. From 8:00 a.m. through 4:00 p.m. on 05/30/2023 her blood pressures remained under 140/90 and she was discharged home in stable condition. I asked her to check her blood pressure twice a day and to contact the clinic or the on-call provider immediately if her blood pressure is greater than or equal to 140/90. Return to the clinic for blood pressure check on 10/04/2023. Time Spent with Patient Time attestation: Total time spent providing and/or coordinating discharge services: Discharge Plan Discharge Disposition: Home, Self-Care Date of Admission: 09/28/23 14:47 Primary Care Provider: Provider,Not a Local Condition: Stable Anticipated Discharge Date/Time: 09/30/23 17:00 Discharge Medications: New nifedipine 30 mg Tablet Extended Release 24hr 30 mg PO BID Qty: 60 1RF Continued prenat.vits,santiago,[id number] Tablet 1 tab PO QDAY acetaminophen 500 mg Tablet 1,000 mg PO Q6H PRNQty: 0 0RF docusate sodium 100 mg Capsule 100 mg PO DAILY Qty: 90 0RF ibuprofen 600 mg Tablet 600 mg PO Q6H PRNQty: 60 0RF Discharge Orders: Discharge Order (Routine); Ordered 09/30/23 Ordered By: Kemi Segura Patient Education: Preeclampsia and Eclampsia After Delivery (GEN) Additional Instructions: Discharge instructions were reviewed with the patient including signs and symptoms of infection and home going medications Restrictions: Nothing vaginally for 6 weeks: no tampons or intercourse Off Work or School for a minimum of 6 weeks Symptoms to report to doctor: * Bleeding that saturates more than one pad per hour * Passing clots larger than the size of a golf ball * Pain not relieved by prescribed medication * Fever above 100.4 degrees Fahrenheit * A foul vaginal odor * Difficulty in emotions, mood, and functions * Thoughts of hurting yourself and/or * Painful, reddened area in your breast * Any drainage, redness, or tenderness in your IV/epidural site * Severe headache that doesn't improve after taking medications * Changes in vision, including temporary loss of vision, blurred vision, and/or light sensitivity * Upper abdominal pain (usually under ribs on the right side) * Decrease in urination or painful, frequent urinating * Chest pain * Shortness of breath * Tenderness or pain with redness and/swelling in the calf(s) of your leg Follow [facility] for a BP check?10/04/2023 Check your blood pressure twice a day. Contact the [facility] or on-call physician if your BP is >/= 140/90. Optional 2-week visit: incision check, discuss feeding concerns, review control options and screen for anxiety/depression. 6-week visit for an annual exam. consultation services are available to all mothers and babies for the first year after delivery.? To make an appointment, please call [phone]. Discharge Diet: Regular Follow Up Appointments: [facility] [Provider Group] Provider,Not a Local [Primary Care Provider] - Forms: [employer] Info Instructions
== END 2023-09-30 16:45 | disposition home or self-care (01) | DRG 776 ==
LOC: OB OUT 14:48 → OB 09-29 15:20
PROVIDERS: Obstetrics & Gynecology; Admitting Provider Obstetrics & Gynecology; Visit Provider Obstetrics & Gynecology
DX: O14.15 Severe pre-eclampsia, complicating the puerperium (principal); R06.89 Other abnormalities of breathing; I95.9 Hypotension, unspecified
CPT/HCPCS: 36415; 80048; 82565; 82570; 83735; 84156; 84450; 84460; 84520; 84550; 85027; A9270; J2405; J2765; J3475; J7120